=== PATIENT | male | born 1980 | race Caucasian/White ===

== ENCOUNTER 2017-02-19 08:46 | Inpatient (IN) | payer BC, OTHER ==
[2017-02-19 09:18] VITALS: BMI 32.1
--- NOTE | 2017-02-19 11:37 | HP ---
COWS - Scale Resting Pulse: 0= [place] 80 or Below Sweatin= Chills/Flushing Restless Observation: 3= Extraneous Movement Pupil Size: 2= Moderately Dilated Bone or Joint Aches: 4=Acute Joint/Muscle Pain Runny Nose/ Eye Tearin= Nasal Congestion GI Upset > 30mins: 1= Stomach Cramp Tremor Observation: 2= Slight Tremor Visible Yawning Observation: 2= >3x During Session Anxiety or Irritability: 2=Irritable/Anxious Goose Flesh Skin: 0=Smooth Skin COWS Score: 18 Admission ROS S - HPI Chief Complaint: DETOX [place] FOR OXYCODONE DEPENDENCE Allergies/Adverse Reactions: Allergies Allergy/AdvReac Type Severity Reaction Status Date / Time No Known Allergies Allergy Verified 02/19/17 09:52 History of Present Illness: 36 Y/O MALE WITH A HX OF OXYCODONE DEPENDENCE SEEKING DETOX [place]. FIRST TIME HERE. Exam Limitations: No Limitations - Ebola screening Have you traveled outside of the country in the last 21 days: No Have you had contact with anyone from an Ebola affected area: No Have you been sick,other than usual withdrawal symptoms: No Do you have a fever: No - Review of Systems Constitutional: Chills, Loss of Appetite, Night Sweats, Changes in sleep, Unintentional Wgt. Loss EENT: reports: Nose Congestion, Dental Problems (MISSING TEETH) Respiratory: reports: No Symptoms reported Cardiac: reports: No Symptoms Reported GI: reports: Constipated, Diarrhea, Poor Appetite : reports: No Symptoms Reported Musculoskeletal: reports: Back Pain, Joint Pain, Muscle Pain Integumentary: reports: No Symptoms Reported Neuro: reports: Numbness, Seizure (HX A ), Tingling Endocrine: reports: No Symptoms Reported Hematology: reports: No Symptoms Reported Psychiatric: reports: Orientated x3, Anxious Other Systems: Reviewed and Negative Patient History - Patient Medical History Hx Anemia: No Hx Asthma: No Hx Chronic Obstructive Pulmonary Disease (COPD): No Hx Cardiac Disorders: No Hx Hypertension: No Hx Seizures: Yes (as a child) Hx Diabetes: No Hx Gastrointestinal Disorders: No Hx Genitourinary Disorders: No Hx Sexually Transmitted Disorders: No Hx Renal Disease (ESRD): No Hx Thyroid Disease: No Hx Human Immunodeficiency Virus (HIV): No (NEGATIVE HX) Hx Hepatitis C: No Hx Depression: No (DEPRESSED /ANXIOUS DUE TO LIFE EVENT. REQUESTING EVAL.) Hx Suicide Attempt: No Hx Schizophrenia: No - Patient Surgical History Past Surgical History: No Hx Neurologic Surgery: No Hx Cataract Extraction: No Hx Cardiac Surgery: No Hx Lung Surgery: No Hx Breast Surgery: No Hx Breast Biopsy: No Hx Abdominal Surgery: No Hx Appendectomy: No Hx Cholecystectomy: No Hx Genitourinary Surgery: No Hx Orthopedic Surgery: No Anesthesia Reaction: No - PPD History Previous Implant?: Yes Documented Results: Negative w/o proof Implanted On Prior R Admission?: No PPD to be Administered?: Yes - Reproductive History Patient is a Female of Child Bearing Age (11 -55 yrs old): No (MALE) - Smoking Cessation Smoking history: Never smoked Have you smoked in the past 12 months: No Hx Chewing Tobacco Use: No Initiated information on smoking cessation: No - Substance & Tx. History Hx Alcohol Use: Yes ("SOCIALLY BUT RARELY") Hx Substance Use: Yes (OXYCODONE) Substance Use Type: Heroin, Opiates Hx Substance Use Treatment: No (NEVER IN [place]) - Substances Abused Heroin Route: Inhalation Frequency: 1-2 times per week Amount used: 4 bags Age of first use: 36 Date of Last Use: 02/16/17 Oxycodone Route: Oral Frequency: Daily Amount used: 4-5 tabs. (80 mg.) Age of first use: 30 Date of Last Use: 02/16/17 suboxone Route: sublingual Frequency: 1-2 times per week Amount used: 1/2 tab. of 8/2 mg. Age of first use: 36 Date of Last Use: 02/18/17 Family Disease History - Family Disease History Family Disease History: Heart Disease: Father (HTN-), Mother (STENT), Other: Father Admission Physical Exam BHS - Vital Signs Vital Signs: Vital Signs - 24 hr 02/19/17 09:16 Temperature 97.6 F Pulse Rate 76 Respiratory 18 Rate Blood Pressure 152/82 - Physical General Appearance: Yes: Mild Distress, Moderate Distress, Irritable, Anxious HEENTM: Yes: EOMI, Normocephalic, MUKUL, Pharynx Normal Respiratory: Yes: Chest Non-Tender, Lungs Clear, Normal Breath Sounds, No Respiratory Distress Neck: Yes: Supple, Trachea in good position Breast: Yes: Breast Exam Deferred Cardiology: Yes: Regular Rhythm, Regular Rate, S1, S2 Abdominal: Yes: Normal Bowel Sounds, Non Tender, Soft Genitourinary: Yes: Other (N/C) Back: Yes: Within Normal Limits Musculoskeletal: Yes: full range of Motion, Gait Steady Extremities: Yes: Normal Range of Motion, Non-Tender Neurological: Yes: 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 intact, Fully Oriented, Alert, Motor Strength 5/5 Integumentary: Yes: Dry, Warm Lymphatic: Yes: Within Normal Limits - Diagnostic (1) Opioid dependence with withdrawal Current Visit: Yes Status: Acute (2) History of seizure Current Visit: Yes Status: Acute Comment: AN INFANT PER PATIENT Cleared for Admission [facility] - Detox or Rehab [facility] Level of Care: Medically Managed Detox Regimen/Protocol: Methadone [facility] Breath Alcohol Content Breath Alcohol Content: 0 Urine Drug Screen - Results Drug Screen Negative: No Urine Drug Screen Results: OXY-Oxycodone
[2017-02-19] MEDS ORDERED: MENTHOL/PHENOL 1 EACH UD MM PRN (11:45)
[2017-02-19] MEDS ORDERED: guaiFENesin/D-METHORPHAN HB 10 ML UNIT-DOSE CUPS PO PRN (11:45)
[2017-02-19] MEDS ORDERED: ACETAMINOPHEN 325 MG TABLET (FP) PO PRN (11:45)
[2017-02-19] MEDS ORDERED: MAGNESIUM HYDROX 2400MG/30ML ORAL SUSPENSION 30 ML CUP PO PRN (11:45)
[2017-02-19] MEDS ORDERED: P-EPHED 60MG/TRIPROLIDI 2.5MG TABLET PO PRN (11:45)
[2017-02-19] MEDS ORDERED: LOPERAMIDE HCL 2 MG CAPSULE PO PRN (11:45)
[2017-02-19] MEDS ORDERED: IBUPROFEN 400 MG TABLET (FP) PO PRN (11:45)
[2017-02-19] MEDS ORDERED: MAGNESIUM CITRATE 300 ML BOTTLE PO PRN (11:45)
[2017-02-19] MEDS ORDERED: MAG HYDROX/AL HYDROX/SIMETH 30 ML UNIT-DOSE CUP PO PRN (11:45)
[2017-02-19] MEDS ORDERED: METHADONE HCL 10 MG TABLET (FOR DETOX USE ONLY) PO ONE ×2 (12:49→23:00)
[2017-02-19] MEDS: diazePAM 5 MG TABLET PO PRN ×3 (13:09→22:34)
--- NOTE | 2017-02-19 14:23 | CONSULT ---
[facility] Psychiatric Consult - Data Date of interview: 02/19/17 Admission source: [facility] Identifying data: This is 36 years old male with no psychiatric hospitalization history intoxicated with: Opioids, Suboxone and Alcohol Substance Abuse History: - Smoking Cessation. Smoking history: Never smoked. Have you smoked in the past 12 months: No. Hx Chewing Tobacco Use: No. Initiated information on smoking cessation: No. - Substance & Tx. History. Hx Alcohol Use: Yes ("SOCIALLY BUT RARELY"). Hx Substance Use: Yes (OXYCODONE). Substance Use Type: Heroin, Opiates. Hx Substance Use Treatment: No (NEVER IN [place]). - Substances Abused. Heroin. Route: Inhalation. Frequency: 1-2 times per week. Amount used: 4 bags. Age of first use: 36. Date of Last Use: 02/16/17. Oxycodone. Route: Oral. Frequency: Daily. Amount used: 4-5 tabs. (80 mg.). Age of first use: 30. Date of Last Use: 02/16/17. suboxone. Route: sublingual. Frequency: 1-2 times per week. Amount used: 1/2 tab. of 8/2 mg. Age of first use: 36. Date of Last Use: 02/18/17 Medical History: Seizure history Psychiatric History: Reports history of depression and anxiety, no medications prior to admiission. Physical/Sexual Abuse/Trauma History: Denies Additional Comment: Observation. Detox Unit Care Protocol Mental Status Exam - Mental Status Exam Alert and Oriented to: Person Cognitive Function: Fair Patient Appearance: Well Groomed Mood: Anxious Affect: Mood Congruent Patient Behavior: Cooperative Speech Pattern: Appropriate Voice Loudness: Normal Thought Process: Goal Oriented Thought Disorder: Being Controlled Hallucinations: Denies Suicidal Ideation: Denies Homicidal Ideation: Denies Insight/Judgement: Fair Sleep: Difficulty falling asleep Appetite: Weight gain Muscle strength/Tone: Normal Gait/Station: Normal Additional Comments: Observation. Detox Unit Care Protocol Psychiatric Findings - Problem List ([place] 1, 2,3) (1) History of seizure Current Visit: Yes Status: Acute Comment: AN INFANT PER PATIENT (2) Opioid dependence with withdrawal Current Visit: Yes Status: Acute (3) Alcohol abuse Current Visit: Yes Status: Acute (4) Drug-induced mood disorder Current Visit: Yes Status: Acute - Initial Treatment Plan Initial Treatment Plan: Observation. Detox Unit Care Protocol
[2017-02-19 18:12] LABS: URINE APPEARANCE CLEAR; URINE BILIRUBIN NEGATIVE (NEGATIVE); URINE BLOOD NEGATIVE (NEGATIVE); URINE COLOR AMBER; URINE GLUCOSE (UA) NEGATIVE (NEGATIVE); URINE KETONE 1+ (NEGATIVE); URINE LEUK ESTERASE NEGATIVE (NEGATIVE); URINE NITRITE NEGATIVE (NEGATIVE); URINE PROTEIN 1+ (NEGATIVE); URINE UROBILINOGEN NEGATIVE E.U./dl (0.2-1.0)
[2017-02-19 18:15] LABS: URINE MUCUS MANY; URINE RBC 3 /hpf (0-3); URINE WBC 5 /hpf (3-5)
[2017-02-19] MEDS: hydrOXYzine PAMOATE 25 MG CAPSULE (FP) PO PRN (19:20)
[2017-02-19] MEDS: diphenhydrAMINE HCL 50 MG CAPSULE PO PRN (22:34)
[2017-02-19] MEDS: THIAMINE HCL 100 MG TABLET (FP) PO SCH (22:34)
[2017-02-20] MEDS ORDERED: METHADONE HCL 10 MG TABLET (FOR DETOX USE ONLY) PO ONE (10:00)
[2017-02-20] MEDS: hydrOXYzine PAMOATE 25 MG CAPSULE (FP) PO PRN (10:06)
[2017-02-20] MEDS: diazePAM 5 MG TABLET PO PRN ×3 (10:06→23:11)
[2017-02-20] MEDS: PRENATAL VITAMINS W/ FOLIC ACID TABLET (FP) PO SCH (10:06)
[2017-02-20 10:35] LABS: MCH 28.7 pg (25.7-33.7); MCHC 32.8 g/dl (32.0-35.9); MEAN CELL VOLUME 87.7 fl (80-96); PLATELET COUNT 239 K/MM3 (134-434); RDW 12.9 % (11.9-15.9); WHITE BLOOD COUNT 9.6 K/mm3 (4.0-10.0)
[2017-02-20 10:52] LABS: ALBUMIN 4.1 g/dl (3.4-5.0); ANION GAP 11 (8-16); CALCIUM 9.7 mg/dL (8.5-10.1); CO2 28 mmol/L (21-32); GLUCOSE,RANDOM 112 mg/dL (74-106)
[2017-02-20 10:56] LABS: ALK PHOS 104 U/L (45-117); BILIRUBIN,TOTAL 0.7 mg/dL (0.2-1.0); COCKROFT - GAULT 147.79; SGOT/AST 24 U/L (15-37); SGPT/ALT 47 U/L (12-78); TOT PROT 7.9 g/dl (6.4-8.2)
[2017-02-20] MEDS ORDERED: IBUPROFEN 600 MG TABLET (FP) PO PRN (11:28)
--- NOTE | 2017-02-20 11:32 | PN ---
S COWS - Scale Resting Pulse: 1= [place] 81-100 Sweatin= Chills/Flushing Restless Observation: 1= Difficult to Sit Still Pupil Size: 1= Pupils >than Normal Bone or Joint Aches: 2= Severe Diffuse Aches Runny Nose/ Eye Tearin= Nasal Congestion GI Upset > 30mins: 1= Stomach Cramp Tremor Observation of Outstretched Hands: 1= Tremor [place], Not Seen Yawning Observation: 0= None Anxiety or Irritability: 2=Irritable/Anxious Goose Flesh Skin: 0=Smooth Skin COWS Score: 11 S Progress Note (SOAP) Subjective: interrupted sleep,sweats, feet hurt Objective: 02/20/17 11:30 Vital Signs Temperature 97.2 F L 02/20/17 09:50 Pulse Rate 89 02/20/17 09:50 Respiratory Rate 20 02/20/17 09:50 Blood Pressure 141/91 02/20/17 09:50 O2 Sat by Pulse Oximetry (%) Laboratory Tests 02/19/17 02/20/17 02/20/17 14:00 06:00 06:00 WBC 9.6 RBC 5.40 Hgb 15.5 Hct 47.3 MCV 87.7 MCHC 32.8 RDW 12.9 Plt Count 239 MPV 10.0 Sodium 144 Potassium 4.0 Chloride 105 Carbon Dioxide 28 Anion Gap 11 BUN 16 Creatinine 1.0 Creat Clearance w eGFR > 60 Random Glucose 112 H Calcium 9.7 Total Bilirubin 0.7 AST 24 ALT 47 Alkaline Phosphatase 104 Total Protein 7.9 Albumin 4.1 Urine Color [place] Urine Appearance Clear Urine pH 6.0 Ur Specific [place] 1.033 Urine Protein 1+ H Urine Glucose (UA) Negative Urine Ketones 1+ H Urine Blood Negative Urine Nitrite Negative Urine Bilirubin Negative Urine Urobilinogen Negative Ur Leukocyte Esterase Negative Urine RBC 3 Urine WBC 5 Ur Epithelial Cells Rare Urine Mucus Many pt aox3 in nad ambulating Assessment: 02/20/17 11:31 withdrawal sx's marybeth foot pains Plan: cont. detox increase fluids motrin 600mg tid flexeril 10mg tid
[2017-02-20] MEDS: CYCLOBENZAPRINE HCL 10 MG TABLET (FP) PO PRN ×2 (12:17→23:11)
[2017-02-20] MEDS: THIAMINE HCL 100 MG TABLET (FP) PO SCH (23:11)
[2017-02-20] MEDS: diphenhydrAMINE HCL 50 MG CAPSULE PO PRN (23:11)
--- NOTE | 2017-02-21 08:28 | EKG ---
Test Reason : Blood Pressure : / mmHG Vent. Rate : 069 BPM Atrial Rate : 069 BPM P-R Int : 144 ms QRS Dur : 092 ms QT Int : 384 ms P-R-T Axes : 022 003 001 degrees QTc Int : 411 ms NORMAL SINUS RHYTHM NONSPECIFIC T WAVE ABNORMALITY ABNORMAL ECG NO PREVIOUS ECGS AVAILABLE Confirmed by BRIAN KHAN, REBECCA ([id number]) on 02/21/2017 8:27:45 AM Referred By: Ethan Diaz Confirmed By:REBECCA TORRES MD
[2017-02-21] MEDS ORDERED: METHADONE HCL 5 MG TABLET (FOR DETOX USE ONLY) PO ONE (10:00)
[2017-02-21] MEDS: PRENATAL VITAMINS W/ FOLIC ACID TABLET (FP) PO SCH (10:08)
[2017-02-21] MEDS: diazePAM 5 MG TABLET PO PRN ×3 (10:10→22:47)
[2017-02-21] MEDS ORDERED: cloNIDine HCL 0.1 MG TABLET PO ONE (10:13)
--- NOTE | 2017-02-21 10:24 | PN ---
BHS COWS - Scale Resting Pulse: 2= [place] 101-120 Sweatin=Flushed/Facial Moisture Restless Observation: 1= Difficult to Sit Still Pupil Size: 0= Normal to Room Light Bone or Joint Aches: 2= Severe Diffuse Aches Runny Nose/ Eye Tearin= Runny Nose/Eyes GI Upset > 30mins: 0= None Tremor Observation of Outstretched Hands: 2= Slight Tremor Visible Yawning Observation: 2= >3x During Session Anxiety or Irritability: 2=Irritable/Anxious Goose Flesh Skin: 0=Smooth Skin COWS Score: 15 BHS Progress Note (SOAP) Subjective: agitation anxiety sweats feet hurt Objective: 02/21/17 10:25 Vital Signs Temperature 97.7 F 02/21/17 06:48 Pulse Rate 68 02/21/17 06:48 Respiratory Rate 18 02/21/17 06:48 Blood Pressure 119/70 02/21/17 06:48 O2 Sat by Pulse Oximetry (%) Laboratory Tests 02/19/17 02/20/17 02/20/17 14:00 06:00 06:00 WBC 9.6 RBC 5.40 Hgb 15.5 Hct 47.3 MCV 87.7 MCHC 32.8 RDW 12.9 Plt Count 239 MPV 10.0 Sodium 144 Potassium 4.0 Chloride 105 Carbon Dioxide 28 Anion Gap 11 BUN 16 Creatinine 1.0 Creat Clearance w eGFR > 60 Random Glucose 112 H Calcium 9.7 Total Bilirubin 0.7 AST 24 ALT 47 Alkaline Phosphatase 104 Total Protein 7.9 Albumin 4.1 Urine Color [place] Urine Appearance Clear Urine pH 6.0 Ur Specific [place] 1.033 Urine Protein 1+ H Urine Glucose (UA) Negative Urine Ketones 1+ H Urine Blood Negative Urine Nitrite Negative Urine Bilirubin Negative Urine Urobilinogen Negative Ur Leukocyte Esterase Negative Urine RBC 3 Urine WBC 5 Ur Epithelial Cells Rare Urine Mucus Many RPR Titer 02/20/17 06:00 WBC RBC Hgb Hct MCV MCHC RDW Plt Count MPV Sodium Potassium Chloride Carbon Dioxide Anion Gap BUN Creatinine Creat Clearance w eGFR Random Glucose Calcium Total Bilirubin AST ALT Alkaline Phosphatase Total Protein Albumin Urine Color Urine Appearance Urine pH Ur Specific [place] Urine Protein Urine Glucose (UA) Urine Ketones Urine Blood Urine Nitrite Urine Bilirubin Urine Urobilinogen Ur Leukocyte Esterase Urine RBC Urine WBC Ur Epithelial Cells Urine Mucus RPR Titer Nonreactive awake/alert ambulating no acute distress Assessment: 02/21/17 10:26 withdrawal sx Plan: continue detox increase fluids clonidine 0.1mg x one
[2017-02-21] MEDS: hydrOXYzine PAMOATE 25 MG CAPSULE (FP) PO PRN (20:00)
[2017-02-21] MEDS: CYCLOBENZAPRINE HCL 10 MG TABLET (FP) PO PRN (20:00)
[2017-02-21] MEDS: THIAMINE HCL 100 MG TABLET (FP) PO SCH (22:47)
[2017-02-21] MEDS: diphenhydrAMINE HCL 50 MG CAPSULE PO PRN (22:47)
[2017-02-22] MEDS: diazePAM 5 MG TABLET PO PRN ×2 (05:24→10:19)
[2017-02-22] MEDS ORDERED: METHADONE HCL 5 MG TABLET (FOR DETOX USE ONLY) PO ONE (10:00)
[2017-02-22] MEDS: PRENATAL VITAMINS W/ FOLIC ACID TABLET (FP) PO SCH (10:19)
--- NOTE | 2017-02-22 11:28 | PN ---
BHS Progress Note (SOAP) Subjective: feeling better but sleep interrupted Objective: 02/22/17 11:26 Vital Signs Temperature 97.7 F 02/22/17 09:53 Pulse Rate 103 H 02/22/17 09:53 Respiratory Rate 18 02/22/17 09:53 Blood Pressure 121/83 02/22/17 09:53 O2 Sat by Pulse Oximetry (%) Laboratory Tests 02/19/17 02/20/17 02/20/17 14:00 06:00 06:00 WBC 9.6 RBC 5.40 Hgb 15.5 Hct 47.3 MCV 87.7 MCHC 32.8 RDW 12.9 Plt Count 239 MPV 10.0 Sodium 144 Potassium 4.0 Chloride 105 Carbon Dioxide 28 Anion Gap 11 BUN 16 Creatinine 1.0 Creat Clearance w eGFR > 60 Random Glucose 112 H Calcium 9.7 Total Bilirubin 0.7 AST 24 ALT 47 Alkaline Phosphatase 104 Total Protein 7.9 Albumin 4.1 Urine Color [place] Urine Appearance Clear Urine pH 6.0 Ur Specific [place] 1.033 Urine Protein 1+ H Urine Glucose (UA) Negative Urine Ketones 1+ H Urine Blood Negative Urine Nitrite Negative Urine Bilirubin Negative Urine Urobilinogen Negative Ur Leukocyte Esterase Negative Urine RBC 3 Urine WBC 5 Ur Epithelial Cells Rare Urine Mucus Many RPR Titer 02/20/17 06:00 WBC RBC Hgb Hct MCV MCHC RDW Plt Count MPV Sodium Potassium Chloride Carbon Dioxide Anion Gap BUN Creatinine Creat Clearance w eGFR Random Glucose Calcium Total Bilirubin AST ALT Alkaline Phosphatase Total Protein Albumin Urine Color Urine Appearance Urine pH Ur Specific [place] Urine Protein Urine Glucose (UA) Urine Ketones Urine Blood Urine Nitrite Urine Bilirubin Urine Urobilinogen Ur Leukocyte Esterase Urine RBC Urine WBC Ur Epithelial Cells Urine Mucus RPR Titer Nonreactive pt aox3 in nad ambulating Assessment: 02/22/17 11:27 withdrawal sx's Plan: cont detox increase fluids
[2017-02-22] MEDS: THIAMINE HCL 100 MG TABLET (FP) PO SCH (22:47)
[2017-02-22] MEDS: diphenhydrAMINE HCL 50 MG CAPSULE PO PRN (22:47)
[2017-02-22] MEDS: CYCLOBENZAPRINE HCL 10 MG TABLET (FP) PO PRN (22:48)
[2017-02-23] MEDS ORDERED: METHADONE HCL 10 MG TABLET (FOR DETOX USE ONLY) PO ONE ×2 (06:00→10:00)
[2017-02-23 06:49] VITALS: BP 154/72; PULSE 80; TEMP 97.9
--- NOTE | 2017-02-23 08:30 | DS ---
[facility] Discharge Summary Admission Date: 02/19/17 Discharge Date: 02/23/17 - History Present History: Opioid Dependence - Physical Exam Results Vital Signs: Vital Signs Temperature 97.9 F 02/23/17 06:00 Pulse Rate 80 02/23/17 06:00 Respiratory Rate 18 02/23/17 06:00 Blood Pressure 154/72 02/23/17 06:00 O2 Sat by Pulse Oximetry (%) - Treatment Hospital Course: Detox Protocol Followed, Detoxed Safely, Responded well, Discharged Condition Good, Rehab Referral Accepted - Medication Discharge Medications: Ambulatory Orders NK [No Known Home Medication] 02/19/17 - Diagnosis (1) Alcohol abuse Current Visit: Yes Status: Acute (2) Drug-induced mood disorder Current Visit: Yes Status: Acute (3) History of seizure Current Visit: Yes Status: Acute (4) Opioid dependence with withdrawal Current Visit: Yes Status: Chronic - AMA Did Patient Leave Against Medical Advice: No
[2017-02-24] MEDS ORDERED: METHADONE HCL 5 MG TABLET (FOR DETOX USE ONLY) PO ONE (06:00)
== END 2017-02-23 09:52 | disposition home or self-care (01) | DRG 897 ==
LOC: YASAS 08:46 → Y6N 10:40
PROVIDERS: ADMIT Internal Medicine Addiction Medicine; ATTEND Internal Medicine Addiction Medicine
PROC: HZ2ZZZZ Detoxification Services for Substance Abuse Treatment (ICD-10-PCS; principal; 2017-02-23)
DX: F11.23 Opioid dependence with withdrawal (principal); F10.10 Alcohol abuse, uncomplicated; F19.24 Other psychoactive substance dependence with psychoactive substance-induced mood disorder; Z86.69 Personal history of other diseases of the nervous system and sense organs
CPT/HCPCS: 36415; 80053; 81003; 81015; 85027; 86593; 93005; 93010